=== PATIENT | female | born 1990 | race Caucasian/White ===

== ENCOUNTER 2023-04-14 21:11 | Emergency (ER) | payer MEDICAID ==
[~2023-04-14] VITALS: Ht 165.1 cm; Wt 64.0 kg
[2023-04-14 21:45] VITALS: BP 120/73
[2023-04-14] MEDS ORDERED: KETOROLAC 60MG/2ML VIAL IM ONE (21:45)
[2023-04-14] MEDS ORDERED: ONDANSETRON 4MG ODT PO ONE (21:45)
[2023-04-14 21:46] LABS: BASOPHILS % 1.1 % (0.0-2.0); EOSINOPHILS % 2.3 % (0.0-5.0); HEMATOCRIT. 42.2 % (36.0-48.0); HEMOGLOBIN. 14.5 g/dL (12.0-16.0); LYMPHOCYTES % 38.5 % (20.0-50.0); MEAN CORPUSCULAR HEMOGLOBIN 29.5 pg (28.0-32.0); MEAN CORPUSCULAR VOLUME 85.9 fL (81.0-99.0); MEAN PLATELET VOLUME 8.6 fl (7.4-10.4); MONOCYTES % 9.1 % (2.0-8.0); PLATELET 288 x1000/uL (130-400); RED BLOOD CELL COUNT 4.91 mill/uL (4.2-5.4)
[2023-04-14 21:56] LABS: PROTHROMBIN TIME 10.5 sec (9.6-11.0)
[2023-04-14 22:04] LABS: CHLORIDE 106 mEq/L (98-107)
[2023-04-14 22:05] LABS: HCG SCREEN NEGATIVE
[2023-04-15] MEDS ORDERED: KETOROLAC 60MG/2ML VIAL IM NR (05:15)
[2023-04-15] MEDS ORDERED: ONDANSETRON 4MG ODT PO NR (05:15)
[2023-04-15 05:39] LABS: CLARITY URINE CLEAR (CLEAR); COLOR URINE YELLOW (YELLOW); KETONES URINE TRACE (NEGATIVE); LEUKOCYTE ESTERASE URINE NEGATIVE (NEGATIVE); NITRITE URINE NEGATIVE (NEGATIVE); OCCULT BLOOD URINE NEGATIVE (NEGATIVE); PH URINE 5.5 (4.5-8.0); PROTEIN URINE NEGATIVE (NEGATIVE); SPECIFIC GRAVITY URINE 1.041 (1.005-1.030)
[2023-04-15] MEDS ORDERED: IBUP-2030 MT (05:54)
== END 2023-04-15 06:50 | disposition home or self-care (01) ==
LOC: ER 21:11
DX: K80.20 Calculus of gallbladder without cholecystitis without obstruction (principal); E11.9 Type 2 diabetes mellitus without complications; E78.00 Pure hypercholesterolemia, unspecified; I10 Essential (primary) hypertension
CPT/HCPCS: 36415; 74176; 80053; 81003; 83690; 84703; 85025; 85610; 96372; 99285; J1885; Q0162; Z7610